=== PATIENT | male | born 1945 | race Two or more races ===

== ENCOUNTER 2017-10-23 12:34 | Outpatient (CLI) | payer OTHER ==
[~2017-10-23 12:34] MED LIST: ATACAND4 MG; GLIMEPIRIDE4 MG; ULTRAM50 MG
== END 2017-10-23 12:44 | disposition home or self-care (01) ==
LOC: RAD 12:34
DX: N18.6 End stage renal disease (principal); I42.8 Other cardiomyopathies; R06.02 Shortness of breath

== ENCOUNTER 2017-11-11 12:00 | Outpatient (CLI) | payer OTHER | END 2017-11-11 12:01 | disposition home or self-care (01) | LOC: RAD 12:00 | DX: J90 Pleural effusion, not elsewhere classified (principal) ==

== ENCOUNTER 2018-03-26 09:27 | Outpatient (CLI) | payer OTHER | END 2018-03-26 09:36 | disposition home or self-care (01) | LOC: RAD 09:27 | DX: J90 Pleural effusion, not elsewhere classified (principal); N18.6 End stage renal disease ==

== ENCOUNTER 2018-05-07 11:16 | Outpatient (CLI) | payer OTHER | END 2018-05-07 17:00 | disposition home or self-care (01) | LOC: TOM 11:16 | DX: J84.89 Other specified interstitial pulmonary diseases (principal) ==

== ENCOUNTER 2018-07-02 07:57 | Outpatient (CLI) | payer OTHER | END 2018-07-02 11:38 | disposition home or self-care (01) | LOC: NUCLEAR 07:57 | DX: C34.31 Malignant neoplasm of lower lobe, right bronchus or lung (principal); Z85.46 Personal history of malignant neoplasm of prostate; R91.1 Solitary pulmonary nodule | CPT/HCPCS: 78816; A9552 ==

== ENCOUNTER 2018-09-27 11:34 | Outpatient (CLI) | payer OTHER | END 2018-09-27 16:13 | disposition home or self-care (01) | LOC: RAD 11:34 | DX: Z01.818 Encounter for other preprocedural examination (principal) ==

== ENCOUNTER 2018-12-22 08:29 | Outpatient (CLI) | payer OTHER | END 2018-12-22 08:31 | disposition home or self-care (01) | LOC: NUCLEAR 08:29 | DX: C34.11 Malignant neoplasm of upper lobe, right bronchus or lung (principal); C61 Malignant neoplasm of prostate; Z85.528 Personal history of other malignant neoplasm of kidney; D63.1 Anemia in chronic kidney disease; N18.6 End stage renal disease; D69.8 Other specified hemorrhagic conditions | CPT/HCPCS: 78816; A9552 ==

== ENCOUNTER → 2019-03-16 | Outpatient (CLI) | payer OTHER | END | disposition home or self-care (01) | LOC: RAD 09:35 | DX: C34.11 Malignant neoplasm of upper lobe, right bronchus or lung (principal); C61 Malignant neoplasm of prostate; Z85.528 Personal history of other malignant neoplasm of kidney; D63.1 Anemia in chronic kidney disease; N18.6 End stage renal disease; D69.6 Thrombocytopenia, unspecified ==

== ENCOUNTER 2019-05-20 09:20 | Outpatient (CLI) | payer OTHER | END 2019-05-20 09:29 | disposition home or self-care (01) | LOC: NUCLEAR 09:20 | DX: C34.11 Malignant neoplasm of upper lobe, right bronchus or lung (principal); C61 Malignant neoplasm of prostate | CPT/HCPCS: 78815; A9552 ==

== ENCOUNTER → 2019-07-29 | Outpatient (CLI) | payer OTHER | END | disposition home or self-care (01) | LOC: TOM 09:15 | DX: C34.90 Malignant neoplasm of unspecified part of unspecified bronchus or lung (principal); M54.5 Low back pain ==

== ENCOUNTER 2019-08-12 11:22 | Outpatient (CLI) | payer OTHER | END 2019-08-12 11:26 | disposition home or self-care (01) | LOC: LAB 11:22 | DX: N20.0 Calculus of kidney (principal) ==

== ENCOUNTER → 2019-10-04 | Outpatient (CLI) | payer OTHER | END | disposition home or self-care (01) | LOC: TOM 07:38 | DX: C34.11 Malignant neoplasm of upper lobe, right bronchus or lung (principal) | CPT/HCPCS: 71260; Q9965 ==

== ENCOUNTER 2020-03-16 09:24 | Outpatient (CLI) | payer OTHER | END 2020-03-16 09:34 | disposition home or self-care (01) | LOC: NUCLEAR 09:24 | PROVIDERS: ATTEND Internal Medicine Hematology & Oncology | DX: C34.11 Malignant neoplasm of upper lobe, right bronchus or lung (principal); C61 Malignant neoplasm of prostate; Z85.528 Personal history of other malignant neoplasm of kidney | CPT/HCPCS: 78815; A9552 ==

== ENCOUNTER 2020-03-30 07:59 | Outpatient (CLI) | payer OTHER | END 2020-03-30 08:08 | disposition home or self-care (01) | LOC: NUCLEAR 07:59 | PROVIDERS: ATTEND Internal Medicine Hematology & Oncology | DX: C34.11 Malignant neoplasm of upper lobe, right bronchus or lung (principal); C61 Malignant neoplasm of prostate | CPT/HCPCS: 78815; A9552 ==

== ENCOUNTER → 2020-11-21 08:07 | Outpatient (CLI) | payer OTHER | END | disposition home or self-care (01) | LOC: NUCLEAR 07:00 | PROVIDERS: ATTEND Internal Medicine Hematology & Oncology | DX: C34.11 Malignant neoplasm of upper lobe, right bronchus or lung (principal); C61 Malignant neoplasm of prostate; D63.1 Anemia in chronic kidney disease; Z85.528 Personal history of other malignant neoplasm of kidney; N18.6 End stage renal disease; D69.6 Thrombocytopenia, unspecified | CPT/HCPCS: 78815; A9552 ==

== ENCOUNTER 2021-01-10 07:17 | Outpatient (CLI) | payer OTHER | END 2021-01-10 07:29 | disposition home or self-care (01) | LOC: TOM 07:17 | DX: J90 Pleural effusion, not elsewhere classified (principal); K80.80 Other cholelithiasis without obstruction; R10.84 Generalized abdominal pain; N18.6 End stage renal disease | CPT/HCPCS: 74160; Q9965 ==

== ENCOUNTER 2021-01-21 07:16 | Outpatient (CLI) | payer OTHER | END 2021-01-21 07:26 | disposition home or self-care (01) | LOC: TOM 07:16 | PROVIDERS: ATTEND Internal Medicine Gastroenterology | DX: K57.90 Diverticulosis of intestine, part unspecified, without perforation or abscess without bleeding (principal); K80.80 Other cholelithiasis without obstruction; Z12.11 Encounter for screening for malignant neoplasm of colon; I70.0 Atherosclerosis of aorta; I70.8 Atherosclerosis of other arteries ==

== ENCOUNTER 2021-02-08 08:42 | Outpatient (CLI) | payer OTHER | END 2021-02-08 08:56 | disposition home or self-care (01) | LOC: RX STUDY 08:42 | PROVIDERS: ATTEND Internal Medicine Gastroenterology | DX: K45.8 Other specified abdominal hernia without obstruction or gangrene (principal); D64.89 Other specified anemias ==

== ENCOUNTER 2021-03-20 08:58 | Outpatient (CLI) | payer OTHER | END 2021-03-20 09:02 | disposition home or self-care (01) | LOC: NUCLEAR 08:58 | PROVIDERS: ATTEND Internal Medicine Gastroenterology | DX: K81.1 Chronic cholecystitis (principal) | CPT/HCPCS: 78226; A9537; J2805 ==

== ENCOUNTER 2021-03-22 09:52 | Outpatient (CLI) | payer OTHER | END 2021-03-22 09:59 | disposition home or self-care (01) | LOC: SONOGRAMA 09:52 → MAMO-SONO 10:15 | PROVIDERS: ATTEND Specialist | DX: R07.89 Other chest pain (principal); J91.8 Pleural effusion in other conditions classified elsewhere ==

== ENCOUNTER → 2021-03-29 07:50 | Outpatient (CLI) | payer OTHER | END | disposition home or self-care (01) | LOC: LAB 07:50 | PROVIDERS: ATTEND Internal Medicine Gastroenterology | DX: R19.5 Other fecal abnormalities (principal); R19.15 Other abnormal bowel sounds ==

== ENCOUNTER 2021-06-19 14:32 | Outpatient (CLI) | payer OTHER | END 2021-06-19 14:33 | disposition home or self-care (01) | LOC: LAB 14:32 | PROVIDERS: ATTEND Radiology Diagnostic Radiology | DX: N20.0 Calculus of kidney (principal) ==

== ENCOUNTER 2021-06-27 07:13 | Outpatient (CLI) | payer OTHER | END 2021-06-27 07:25 | disposition home or self-care (01) | LOC: TOM 07:13 | PROVIDERS: ATTEND Internal Medicine Gastroenterology | DX: R10.9 Unspecified abdominal pain (principal) | CPT/HCPCS: 74178; Q9965 ==

== ENCOUNTER 2021-06-28 09:59 | Outpatient (CLI) | payer OTHER | END 2021-06-28 10:02 | disposition home or self-care (01) | LOC: RAD 09:59 | PROVIDERS: ATTEND Internal Medicine Cardiovascular Disease | DX: M12.9 Arthropathy, unspecified (principal) ==

== ENCOUNTER 2021-07-01 07:46 | Outpatient (CLI) | payer OTHER | END 2021-07-01 07:47 | disposition home or self-care (01) | LOC: NUCLEAR 07:46 | PROVIDERS: ATTEND Internal Medicine Cardiovascular Disease | DX: I87.2 Venous insufficiency (chronic) (peripheral) (principal) ==

== ENCOUNTER 2021-08-23 08:50 | Outpatient (CLI) | payer OTHER | END 2021-08-23 08:57 | disposition home or self-care (01) | LOC: TOM 08:50 | DX: C34.11 Malignant neoplasm of upper lobe, right bronchus or lung (principal); C61 Malignant neoplasm of prostate; Z85.528 Personal history of other malignant neoplasm of kidney; D63.1 Anemia in chronic kidney disease; N18.6 End stage renal disease; D69.6 Thrombocytopenia, unspecified ==

== ENCOUNTER 2021-08-26 07:36 | Outpatient (CLI) | payer OTHER | END 2021-08-26 07:37 | disposition home or self-care (01) | LOC: NUCLEAR 07:36 | PROVIDERS: ATTEND Internal Medicine Hematology & Oncology | DX: C34.11 Malignant neoplasm of upper lobe, right bronchus or lung (principal) ==

== ENCOUNTER → 2021-12-02 | Outpatient (CLI) | payer OTHER | END | disposition home or self-care (01) | LOC: NUCLEAR 08:00 | PROVIDERS: ATTEND Internal Medicine Hematology & Oncology | DX: C34.11 Malignant neoplasm of upper lobe, right bronchus or lung (principal); C61 Malignant neoplasm of prostate; Z85.528 Personal history of other malignant neoplasm of kidney; D63.1 Anemia in chronic kidney disease; N18.6 End stage renal disease; D69.6 Thrombocytopenia, unspecified; E03.9 Hypothyroidism, unspecified | CPT/HCPCS: 78812; A9552 ==